=== PATIENT | female | born 1975 | race Caucasian/White ===

== ENCOUNTER 2019-10-28 09:12 | Observation (INO) | payer OTHER, SELFPAY ==
[2019-10-28] VITALS (14 sets, daily range): BP systolic 103–123; BP diastolic 67–79; PULSE 82–138; RESP 18–27; TEMP 36.2–39.3; O2SAT 94–99; BMI 33.5
--- NOTE | ~2019-10-28 | XR_ITS ---
XR chest 2V 10/28/2019 10:51 Indication: Shortness of breath and cough Procedure: 2 view chest Comparison: No prior studies for comparison. Findings: Shallow inspiration with crowding of the pulmonary vasculature. There is lower lobe atelect asis. No focal pneumonia, edema, pleural effusion or pneumothorax. Heart size normal. No acute osseou s abnormality. Impression: 1: Lower lobe atelectasis, best seen on the lateral view. Reviewed, dictated and finalized at location B. LE CONSULTANT Impression: 1: Lower lobe atelectasis, best seen on the lateral view.
--- NOTE | ~2019-10-28 | CT_ITS ---
EXAMINATION: CTA chest PE protocol DATE: 10/28/2019 11:34 HEATER FURNACE INDICATION: Shortness of breath TECHNIQUE: Computed tomographic angiography (CTA) of the chest was performed with 100 mL Omnipaque-35 0 intravenous contrast. The dose-length product was 501.30 mGy-cm. Maximum intensity projection 3D-re constructions of the aorta and other arteries were constructed by the technologist on a separate work station. Automated exposure control and iterative reconstruction technique were employed. COMPARISON: Chest x-ray dated 10/28/2019 FINDINGS: The study is technically adequate without evidence for pulmonary embolism. No significant p leural or pericardial effusion. There is mediastinal lymphadenopathy right paratracheal lymph node me asures 9 mm. No evidence for aortic aneurysm or dissection. Fatty infiltration of the liver. There is an accessory splenule medial to the spleen. There is right lower lobe airspace consolidation with ai r bronchograms, compatible with pneumonia. No endobronchial lesions. No acute osseous abnormality. IMPRESSION: 1. Right lower lobe airspace consolidation containing air bronchograms, compatible with pneumonia. Re commend follow-up CT in 2-3 months to ensure complete resolution. 2: Mild mediastinal lymphadenopathy, likely reactive. 3: No evidence for pulmonary embolism. 4: Hepatic steatosis. Reviewed, dictated and finalized at location B. ER FURNACE IMPRESSION: 1. Right lower lobe airspace consolidation containing air bronchograms, compati ble with pneumonia. Recommend follow-up CT in 2-3 months to ensure complete res olution. 2: Mild mediastinal lymphadenopathy, likely reactive. 3: No evidence for pulmonary embolism. 4: Hepatic steatosis.
--- NOTE | 2019-10-28 10:27 | ECG_ITS ---
Measurements Intervals [place] Rate: 148 P: 32 LA: 128 QRS: -9 QRSD: 74 T: 46 QT: 287 QTc: 450 Interpretive Statements SINUS TACHYCARDIA, POSSIBLE ATRIAL FLUTTER BASELINE ARTIFACT- I, II, III, AVR, AVL, AVF, V1-V2 ABNORMAL ECG Electronically Signed On 10-28-2019 11:10:59 TRIMMING INSPECTOR by Venkat Ritchie D.O.
--- NOTE | 2019-10-28 10:43 | ED.BACK ---
HPI - Back Pain/Injury General Chief Complaint: Back Pain/Injury <TORRI Schofield Last Filed: 10/28/19 12:47> Stated Complaint: back pain <TORRI Schofield Last Filed: 10/28/19 12:47> Time Seen by Provider: 10/28/19 09:14 <TORRI Schofield Last Filed: 10/28/19 12:47> Source: patient and family <TORRI Schofield Last Filed: 10/28/19 12:47> Mode of arrival: ambulatory <TORRI Schofield Last Filed: 10/28/19 12:47> Limitations: no limitations <TORRI Schofield Last Filed: 10/28/19 12:47> History of Present Illness HPI Narrative: Patient is a 44-year-old female who presents to emergency department for evaluation of fever chills body ache dyspnea and upper thoracic back pain on the right side worse with breathing patient notes that she had felt fine yesterday has had a nonproductive cough and some rhinorrhea denies other illness or complaints presents per private vehicle has not taken anything for her symptoms. Patient denies any vomiting diarrhea. Patient notes history of tobacco abuse and alcoholism denies any alcohol use today. Patient on arrival notes aching pain of the thoracic back worse with breathing is noted <TORRI Schofield Last Filed: 10/28/19 12:47> Related Data Home Medications: Home Medications Medication Instructions Recorded Confirmed lisinopril-hydrochlorothiazide See Rx Instructions .ROUTE .COMPLEX 10/28/19 10/28/19 trazodone 100 mg PO DAILY 10/28/19 10/28/19 <TORRI Schofield Last Filed: 10/28/19 12:47> Allergies/Adverse Reactions: Allergies Allergy/AdvReac Type Severity Reaction Status Date / Time No Known Allergies Allergy Mild Verified 10/28/19 09:56 <TORRI Schofield Last Filed: 10/28/19 12:47> Review of Systems Review of Systems: All systems reviewed & are unremarkable except as noted in HPI and below <TORRI Schofield Last Filed: 10/28/19 12:47> PMF Past Medical History Medical History: Medical History (Updated 10/28/19 @ 16:55 by Jessika Laurent NP) Alcohol abuse DVT (deep venous thrombosis) left lower extremity after surgery when she had a left lower extremity rodrigo placed Hypertension Insomnia Seasonal allergies Tobacco abuse <TORRI Schofield Last Filed: 10/28/19 12:47> Surgical History Surgical History: Surgical History (Updated 10/28/19 @ 16:56 by Jessika Laurent NP) S/P ORIF (open reduction internal fixation) fracture She has a rodrigo to the left lower extremity <Jose Manuel Wisdom PA-C - Last Filed: 10/28/19 12:47> Family History Family History: Family History (Updated 10/28/19 @ 16:36 by Jessika Laurent NP) Mother Cancer Female cancer, patient unsure of location Father , Unsure of what father from. No problems noted. <TORRI Schofield Last Filed: 10/28/19 12:47> Social History Social History: Social History (Updated 10/28/19 @ 16:38 by Jessika Laurent NP) Social History: Patient is not and has no kids. She resides with her boyfriend. 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
[2019-10-28] MEDS: IPRATROPIUM BR 0.02% INH SOLN 0.5 MG/2.5 ML VIAL INHALATION ×2 (10:51→19:39)
[2019-10-28] MEDS: ALBUTEROL SULFATE NEB 2.5 MG/0.5 ML INH 5 MG INHALATION (10:51)
[2019-10-28 10:53] LABS: Basophils Percent Auto 0.2 % (0.2-1.2); Eosinophils Percent Auto 0.3 % (0-4.4); Hematocrit 41.2 % (37.0-47.0); Hemoglobin 14.2 g/dL (12.0-15.0); Immature Granulocyte Absolute 0.07 K/mm3 (0.00-0.031); Immature Granulocyte Percent A 0.7 % (0-0.5); Lymphocytes Absolute Auto 0.61 K/mm3 (0.9-3.2); Lymphocytes Percent Auto 6.4 % (18.3-44.2); Mean Corpuscular HGB Conc 34.5 g/dl (32-36); Mean Corpuscular Hemoglobin 33.4 pg (26-34); Mean Corpuscular Volume 96.9 fl (80-100); Mean Platelet Volume 9.9 fl (7.4-10.4); Monocytes Absolute Auto 0.3 K/mm3 (0.1-0.6); Neutrophils Absolute Auto 8.5 K/mm3 (1.3-6.7); Neutrophils Percent Auto 89.4 % (45.5-73.1); Platelet Count Result 298 k/mm3 (150-375); Red Blood Count 4.25 M/mm3 (4.2-5.4); Red Cell Distribution Width 13.2 % (11.5-14.5); White Blood Count 9.5 K/mm3 (4.5-10.0)
[2019-10-28] MEDS: SODIUM CHLORIDE 0.9% IV 2,800 ML/1,000 ML BAG 999 ML IV CONT ×3 (10:58→13:02)
[2019-10-28 11:00] LABS: Alveolar/Arterial O2 Gradient 55.7 mmHg; Base Excess ABG 1.1 mEq/l (+/-2.0); Carboxyhemoglobin 2.2 % THb (0-2.0); Fractional Inspired Oxygen 21 %; HCO3 ABG 21.9 mEq/l (22.0-26.0); Methemoglobin ABG 0.4 %THb (0-1.5); Oxygen Content ABG 18.2 %vol (16.0-22.0); Oxygen Saturation ABG 95.1 % (95.0-100.0); Oxyhemoglobin 91.7 % THb (90.0-100.0); PCO2 ABG 25.4 mmHg (35.0-45.0); PO2 ABG 63.6 mmHg (80.0-100.0); PO2 FiO2 Ratio Arterial Blood 3.03 %; Reduced Hemoglobin 5.7 %THb (0-5.0); Total Hemoglobin 14.1 g/dL (12.0-18.0)
[2019-10-28 11:00] LABS: Add Urine Microscopic? YES; Appearance Urine Cloudy (Clear); Bacteria Urine Trace /hpf; Bilirubin Urine Negative (Negative); Blood Urine 2+ (Negative); Color Urine Yellow (Yellow); Glucose Urine UA Negative (Negative); Ketones Urine Negative (Negative); Leukocyte Esterase Ur Negative LEU/UL (Negative); Mucus Urine Rare /lpf; Nitrate Urine Negative (Negative); Protein Urine Negative (Negative); RBC Urine 0-2 /hpf (0-2); Specific Grav Ur 1.019 (1.001-1.035); Squamous Epithelial Cell Urine Occasional /hpf (Few); Urobilinogen Urine Negative mg/dL (<2.0); WBC Urine 0-3 /hpf
[2019-10-28] MEDS: LORAZEPAM INJ 2 MG/ML VIAL 1 MG IV PUSH (11:00)
[2019-10-28 11:01] LABS: Site Drawn RIGHT RADIAL; pH ABG 7.554 (7.350-7.450)
[2019-10-28 11:02] LABS: Device ROOM AIR; Modified Allen's Test Pass
--- NOTE | 2019-10-28 11:10 | PCRCNOTE ---
patients heart rate was elevated did not give the albuterol. In replacement xopenex was given.
--- NOTE | 2019-10-28 11:15 | PC.NURSE ---
Patient to CT at this time.
[2019-10-28 11:16] LABS: Alanine Aminotransferase 148 U/L (4-35); Albumin Level 4.5 g/dL (3.5-5.1); Alkaline Phosphatase 177 U/L (38-126); Aspartate Amino Transferase 135 U/L (14-36); Bilirubin,Total 1.4 mg/dL (0.2-1.3); Blood Urea Nitrogen 15 mg/dL (7-17); CRP 3.3 mg/dL (<1.0); Calcium 9.8 mg/dL (8.4-10.2); Carbon Dioxide 19 mmol/L (22-30); Chloride 96 mmol/L (98-107); Estimated CRCL calculation 82 ml/min; Estimated Glomerular Filt Rate > 60; Glucose 147 mg/dL (65-105); Lipase 136 U/L (23-300); Potassium 4.3 mmol/L (3.4-5.0); Sodium 134 mmol/L (137-145)
[2019-10-28 11:28] LABS: Lactic Acid Reflex 2.1 mmol/L (0.7-2.1)
--- NOTE | 2019-10-28 12:15 | PC.NURSE ---
Pharmacy called about thiamine bag. pharmacist states they are working on it now.
[2019-10-28] MEDS: IBUPROFEN IV 800 MG/200 ML 800 MG/200 ML BAG 400 MG IVPB (12:25)
--- NOTE | 2019-10-28 14:00 | ADMGEN ---
This patient, Sara Machado, was admitted to Medical Room 249-01. Patient/family oriented to hospital policies and general routines including ID bracelet, bed and alarms, visiting hours, pain management, procedures, bathroom and other care routines, personal items, smoking policy, room service/diet, and visiting hours. Valuables list has been completed. Information on how to activate the Rapid Response Team has been discussed. Patient/Family are encouraged to report perceived risks to care and to ask questions if they do not understand what they are told or what they should do.
[2019-10-28 14:15] LABS: Reflex Lactic Acid Yes or No Add Lactic
[2019-10-28 14:48] LABS: Lactic Acid 2.4 mmol/L (0.7-2.1)
--- NOTE | 2019-10-28 16:15 | PM.IMHP ---
H&P: HPI History of Present Illness Chief complaint: Pneumonia,hypoxemia Narrative: Sara Machado is a 44 year old female who presented to the ED this morning for right lower back pain that started this morning. She tried a heating pad for relief with no success. She reports that movement makes the pain worse. She reports that she has been febrile and has had a dry cough. Chest xray shows a right lower lobe atelectasis and CTA of the chest was negative for pulmonary embolism. She was started on a Zithromax and Rocephin in the emergency room. She is also started on a banana bag for possible alcohol withdrawals. She has subjective fever chills and weakness. Nonproductive cough. But the patient also stated that she has been having this cough for over a year. She has been on lisinopril for a long time. Date of service is 10/28/2019. Review of Systems Review of Systems: All systems reviewed & are unremarkable except as noted in HPI and below Constitutional: Constitutional: Reports as per HPI, Reports body ache(s), Reports fatigue and Reports weakness Comments: Patient reports these symptoms have been present times 1 week. Eyes: Eyes: Reports as per HPI and Reports no additional eye complaints ENT: Reports Normal hearing present and Reports nasal discharge Comments: Patient reports some clear nasal discharge. Cardiovascular: Cardiovascular: Reports no additional cardiovascular complaints Respiratory: Respiratory: Reports as per HPI, Reports cough (non-productive), Reports dyspnea on exertion and Reports wheezing (Expiratory. Bilaterally posterior. Diminished throughout all lobes.) Gastrointestinal: Gastrointestinal: Reports as per HPI and Reports no additional gastrointestinal complaints Genitourinary: Genitourinary: Reports no additional female genitourinary complaints Musculoskeletal: Musculoskeletal: Reports back pain (Right lower. Started this am.) and Reports myalgias (Times one week) Integumentary/Breasts: Skin/Breast: Reports system reviewed and no additional complaints, except as docu Neurologic: Reports system reviewed and no additional complaints, except as documented and Reports Normal hearing present Psychiatric: Psychiatric: Reports no additional psychiatric complaints and Reports as per HPI Hematologic/Lymphatic: Hematologic/Lymphatic: Reports no additional hematologic/lymphatic complaints Allergic/Immunologic: Allergic/Immunologic: Reports no additional allergic/immunologic complaints [facility] Past Medical History Medical History (Updated 10/28/19 @ 16:55 by Jessika Laurent NP) Alcohol abuse DVT (deep venous thrombosis) left lower extremity after surgery when she had a left lower extremity rodrigo placed Hypertension Insomnia Seasonal allergies Tobacco abuse Surgical History Surgical History (Updated 10/28/19 @ 16:56 by Jessika Laurent NP) S/P ORIF (open reduction internal fixation) fracture She has a rodrigo to the left lower extremity Family History Family History (Updated 10/28/19 @ 16:36 by Jessika Laurent NP) Mother Cancer Female cancer, patient unsure of location Father , Unsure of what father from. No problems noted. Social History Social History (Updated 10/28/19 @ 16:38 by Jessika Laurent NP) Social History: Patient is not and has no kids. She resides with her boyfriend. 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 Smoking packs per day: 1 Smoking cigarettes per day: 20.0 Years smoked: 30 Smoking pack-years: 30.00 Smoking status: Current every day smoker Tobacco type: cigarettes Second hand tobacco smoke exposure: Yes Alcohol intake: current Drinks per week: 9 Alcohol use details: 3 drinks 3-4 times per week Substance use: never Living arrangements: with friend(s) Additional living arrangements comments: lives with boyfriend Occupation/Education: occupation
--- NOTE | 2019-10-28 16:38 | PC.NURSE ---
Sepsis screen is high risk for infection due to documented infection. Jessika Laurent admitted the patient and review condition.
[2019-10-28] MEDS: ENOXAPARIN 40 MG/0.4 ML SYRINGE SUB-Q (18:04)
--- NOTE | 2019-10-28 19:29 | PC.NURSE ---
On 10/28/19, the acacia, [ELLE Bhat], provided care and completed [facility] documentation on this patient. I have reviewed the Acacia's documentation and agree with the findings.
[2019-10-28] MEDS: ALBUTEROL SULFATE NEB 2.5 MG/0.5 ML INH INHALATION (19:39)
[2019-10-28] MEDS: TRAZODONE HCL 50 MG TABLET PO (20:50)
[2019-10-28] MEDS: FAMOTIDINE 20 MG/2 ML VIAL IV PUSH (20:50)
[2019-10-28] MEDS: NICOTINE (*PBKC) 21 MG PATCH 1 PATCH TRANSDERM (20:50)
[2019-10-29] VITALS (9 sets, daily range): BP systolic 105–116; BP diastolic 66–68; PULSE 83–90; RESP 18–20; TEMP 36.2; O2SAT 97
[2019-10-29] MEDS: IPRATROPIUM BR 0.02% INH SOLN 0.5 MG/2.5 ML VIAL INHALATION ×2 (01:50→08:44)
[2019-10-29] MEDS: ALBUTEROL SULFATE NEB 2.5 MG/0.5 ML INH INHALATION ×2 (01:50→08:44)
[2019-10-29 06:05] LABS: Basophils Percent Auto 0.2 % (0.2-1.2); Eosinophils Absolute Auto 0.1 K/mm3 (0-0.3); Eosinophils Percent Auto 1.3 % (0-4.4); Hematocrit 31.1 % (37.0-47.0); Hemoglobin 10.7 g/dL (12.0-15.0); Immature Granulocyte Absolute 0.08 K/mm3 (0.00-0.031); Immature Granulocyte Percent A 0.8 % (0-0.5); Lymphocytes Absolute Auto 1.47 K/mm3 (0.9-3.2); Mean Corpuscular HGB Conc 34.4 g/dl (32-36); Mean Corpuscular Hemoglobin 33.9 pg (26-34); Mean Corpuscular Volume 98.4 fl (80-100); Mean Platelet Volume 9.6 fl (7.4-10.4); Monocytes Absolute Auto 0.7 K/mm3 (0.1-0.6); Monocytes Percent Auto 6.9 % (2.6-8.5); Neutrophils Absolute Auto 7.4 K/mm3 (1.3-6.7); Neutrophils Percent Auto 75.8 % (45.5-73.1); Platelet Count Result 216 k/mm3 (150-375); Red Blood Count 3.16 M/mm3 (4.2-5.4); Red Cell Distribution Width 13.2 % (11.5-14.5); White Blood Count 9.8 K/mm3 (4.5-10.0)
[2019-10-29 06:13] LABS: Blood Urea Nitrogen 13 mg/dL (7-17); Calcium 7.8 mg/dL (8.4-10.2); Carbon Dioxide 24 mmol/L (22-30); Chloride 101 mmol/L (98-107); Estimated CRCL calculation 95 ml/min; Estimated Glomerular Filt Rate > 60; Glucose 93 mg/dL (65-105); Magnesium 1.7 mg/dL (1.6-2.3); Potassium 3.3 mmol/L (3.4-5.0); Sodium 136 mmol/L (137-145)
[2019-10-29] MEDS: THIAMINE HCL 100 MG TABLET PO (08:07)
[2019-10-29] MEDS: FOLIC ACID 1 MG TABLET PO (08:07)
[2019-10-29] MEDS: FAMOTIDINE 20 MG/2 ML VIAL IV PUSH (08:08)
--- NOTE | 2019-10-29 12:10 | PM.DS ---
DS: Diagnosis Admitting Diagnosis Admitting Diagnosis: Pneumonia, unspecified organism Discharge Diagnosis (1) Pneumonia: Code(s): J18.9 - Pneumonia, unspecified organism Status: Acute Assessment and Plan: Day 2 ceftriaxone and azithromycin Transition to PO cefdinir and azithromycin at discharge. (2) Hypoxemia: Code(s): R09.02 - Hypoxemia Status: Acute Assessment and Plan: No longer requiring (3) Hypertension: Code(s): I10 - Essential (primary) hypertension Status: Acute Assessment and Plan: Hold lisinopril-hctz until bp is 140/90 or greater or until Dr[address] Perez instructs her to resume it. (4) Insomnia: Code(s): G47.00 - Insomnia, unspecified Status: Acute Assessment and Plan: Continue trazadone as ordered. (5) Tobacco abuse: Code(s): Z72.0 - Tobacco use Status: Acute Assessment and Plan: Patient aware of need to quit (6) DVT (deep venous thrombosis): Code(s): I82.409 - Acute embolism and thrombosis of unspecified deep veins of unspecified lower extremity Status: Acute Assessment and Plan: Enoxaparin while hospitalized (7) Alcohol abuse: Code(s): F10.10 - Alcohol abuse, uncomplicated Status: Acute Assessment and Plan: Patient aware of need to quit DS: Summary Time Spent with Patient Time attestation: Total time spent providing and/or coordinating discharge services: Exam Narrative: Exam Narrative: HEENT: EOMI, PERRL, pharyngeal mucosa pink and intact NECK: No JVD, adenopathy, or thyromegaly CHEST: Slight end inspiratory wheezes at bilateral lower lobes, clear otherwise. HEART: NL S1/S2, regular, no murmur ABDOMEN: BS+, soft, nontender, no mass, no bruits EXTREMITIES: No cyanosis, edema, or clubbing NEUROLOGIC: CN intact and symmetric to inspection. MUSCULOSKELETAL: Tone and strength symmetric. PSYCH: Alert. Oriented to person, place, and time. DS: Data Data Completed and Pending Labs on day of discharge: Labs from last 24 hours 10/29/19 10/29/19 10/28/19 04:55 04:55 14:33 WBC 9.8 RBC 3.16 L Hgb 10.7 L D Hct 31.1 L MCV 98.4 MCH 33.9 MCHC 34.4 RDW 13.2 Plt Count 216 MPV 9.6 Immature Gran % (Auto) 0.8 H Neut % (Auto) 75.8 H Lymph % (Auto) 15.0 L Levy % (Auto) 6.9 Eos % (Auto) 1.3 Baso % (Auto) 0.2 Lymph # (Auto) 1.47 Levy # (Auto) 0.7 H Eos # (Auto) 0.1 Baso # (Auto) 0.0 Abs Immat Gran (auto) 0.08 H Absolute Neuts (auto) 7.4 H Absolute Nucleated RBC 0.0 Nucleated RBC % 0.0 Sodium 136 L Potassium 3.3 L Chloride 101 Carbon Dioxide 24 BUN 13 Creatinine 0.80 Estim Creat Clear Calc 95 Estimated GFR > 60 Glucose 93 Lactic Acid 2.4 H Calcium 7.8 L Magnesium 1.7 Preliminary micro results at discharge 10/28/19 10:38 Blood Culture - Preliminary Blood 10/28/19 10:39 Blood Culture - Preliminary Blood Discharge Plan Discharge Attending physician on discharge: Harish Santa Consulting providers: Jose Manuel Wisdom Discharging Clinician: Harish Santa Patient Disposition: Home, Self-Care Activity: as tolerated Diet: regular Patient Instructions: Antibiotic Form, How to Stop Smoking (DC) Stand Alone Forms: General Discharge Information Follow-up/Referrals: Jasmina,Cruzito Shipman MD [Primary Care Provider] - 1 Week Discharge Medications: New cefdinir 300 mg capsule 300 mg PO Q12H Qty: 10 RF: 0 azithromycin 500 mg tablet 500 mg PO DAILY 3 Days Qty: 3 RF: 0 Continued trazodone 100 mg tablet 100 mg PO DAILY RF: 0 Held lisinopril-hydrochlorothiazide 20-12.5 mg tablet See Rx Instructions .ROUTE .COMPLEX RF: 0 Hold Instructions: Resume on 11/05/19. DO NOT TAKE UNTIL YOU SEE DR. PEREZ OR UNTIL YOUR HOME BP IS 140/90 OR HIGHER. Date of admi
--- NOTE | 2019-10-29 13:35 | PC.NURSE ---
On 10/29/19, the Omkar, [ELLE Bhat], provided care and completed [facility] documentation on this patient. I have reviewed her documentation and agree with the findings.
== END 2019-10-29 13:32 | disposition home or self-care (01) ==
LOC: ANHED 12:57 → ANH2MED 13:13
PROVIDERS: Emergency Medicine Emergency Medical Services; Admitting Provider Internal Medicine; Emergency Provider Emergency Medicine; PCP Internal Medicine; Visit Provider Internal Medicine
DX: J18.9 Pneumonia, unspecified organism (principal); R09.02 Hypoxemia; I10 Essential (primary) hypertension; G47.00 Insomnia, unspecified; F17.210 Nicotine dependence, cigarettes, uncomplicated; I82.402 Acute embolism and thrombosis of unspecified deep veins of left lower extremity; F10.10 Alcohol abuse, uncomplicated; Z79.899 Other long term (current) drug therapy; Z86.718 Personal history of other venous thrombosis and embolism
CPT/HCPCS: 36415; 36600; 71046; 71275; 80048; 80053; 81001; 81025; 82375; 82805; 83050; 83605; 83690; 83735; 85025; 85610; 85730; 86140; 87040; 87081; 87804; 87880; 93005; 94640; 96361; 96365; 96366; 96367; 96368; 96372; 96375; 99285; A9270; G0378; J0131; J0456; J0696; J1650; J1741; J2060; J3411; J3475; J7030; J7120; Q9967

== ENCOUNTER 2022-01-21 14:38 | Emergency (ER) | payer OTHER, SELFPAY ==
[2022-01-21 14:43] VITALS: BP 183/105; PULSE 98; RESP 18; TEMP 36.5; O2SAT 95
--- NOTE | 2022-01-21 14:52 | ED.BACK ---
HPI - Back Pain/Injury General Chief Complaint: Back Pain/Injury Stated Complaint: back pain Time Seen by Provider: 01/21/22 14:55 Source: patient and family Mode of arrival: ambulatory Limitations: no limitations History of Present Illness HPI Narrative: Ms. Meléndez is a 46-year-old female patient presenting to the clinic today with complaints of left-sided low back pain. She reports that this began approximately 1.5 weeks ago when she hurt her back and had pain for 1 day. States that she has done some to reinjure her back today and is having pain to the left side. Reports that the pain is a burning sensation and feels as also that it spasming. Pain is worse with movement and climbing stairs. She denies any pain to her hip or denies any rash to her back. No fever no chills. No known exposure to anybody with COVID, flu, or strep. She denies any urinary symptoms. She denies any saddle anesthesia or loss of bowel or bladder. Related Data Home Medications Medication Instructions Recorded Confirmed lisinopril 20 See Rx Instructions .Route .COMPLEX 10/28/19 10/28/19 mg-hydrochlorothiazide 12.5 mg tablet Allergies Allergy/AdvReac Type Severity Reaction Status Date / Time No Known Allergies Allergy Mild Verified 10/28/19 09:56 Review of Systems Review of Systems: Pertinent positives per HPI. Patient denies any fever, chills, rash, headache, visual changes, dizziness, cough, runny nose, sore throat, shortness of breath, chest pain, palpitations, nausea, vomiting, diarrhea, constipation, abdominal pain, or any urinary issues. [facility] Past Medical History Medical History Alcohol abuse DVT (deep venous thrombosis) left lower extremity after surgery when she had a left lower extremity rodrigo placed Hypertension Insomnia Seasonal allergies Tobacco abuse Surgical History Surgical History S/P ORIF (open reduction internal fixation) fracture She has a rodrigo to the left lower extremity Family History Family History Mother Cancer Female cancer, patient unsure of location Father , Unsure of what father from. No problems noted. Social History Social History Social History: Patient is not and has no kids. She resides with her boyfriend. 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 There is no relevant family history pertinent to the patient complaint. Course Course Emergency Course: Portions of this record may have been created with voice recognition software. Level of Care: Express Care Visit Vital Signs Vital signs: Vital Signs Temperature 36.5 C 01/21/22 14:43 Pulse Rate 98 01/21/22 14:43 Respiratory Rate 18 01/21/22 14:43 Blood Pressure 183/105 H 01/21/22 14:43 Pulse Oximetry 95 01/21/22 14:43 Oxygen Delivery Room Air 01/21/22 14:43 Temperature 36.5 C 01/21/22 14:43 Pulse Rate 98 01/21/22 14:43 Respiratory Rate 18 01/21/22 14:43 Blood
[2022-01-21] MEDS: KETOROLAC (*BKC) 60 MG/2 ML VIAL IM (15:01)
== END 2022-01-21 15:28 | disposition home or self-care (01) ==
PROVIDERS: Emergency Provider Nurse Practitioner Family; PCP Internal Medicine
DX: M54.50 Low back pain, unspecified (principal); F17.210 Nicotine dependence, cigarettes, uncomplicated; I10 Essential (primary) hypertension; Z86.718 Personal history of other venous thrombosis and embolism
CPT/HCPCS: 96372; 99213; G0463; J1885